=== PATIENT | female | born 1965 | race Two or more races ===

== ENCOUNTER → 2024-07-20 16:20 | Outpatient (REF) | payer OTHER, SELFPAY | LOC: HWWDC 16:20 | PROVIDERS: ATTENDING PHYSICIAN Internal Medicine | DX: Z12.31 Encounter for screening mammogram for malignant neoplasm of breast (principal) | CPT/HCPCS: 77063; 77067 ==

== ENCOUNTER → 2025-07-22 15:34 | Outpatient (REF) | payer OTHER, SELFPAY | LOC: HWWDC 15:34 | PROVIDERS: ATTENDING PHYSICIAN Internal Medicine | DX: Z12.31 Encounter for screening mammogram for malignant neoplasm of breast (principal) | CPT/HCPCS: 77063; 77067 ==